=== PATIENT | male | born 1980 | race Caucasian/White ===

== ENCOUNTER → 2016-11-02 | Outpatient (CLI) | payer MEDICAID ==
[2016-11-02 09:00] LABS: HEMOGLOBIN 14.5 g/dL (14.1-18.0); LYMPH # 1.9 K/mm3 (0.7-4.5); LYMPH % 28.7 % (10-50)
[2016-11-02 09:54] LABS: BUN 10 mg/dL (7-18)
[2016-11-02 09:55] LABS: GFR (ESTIMATED) 94 ML/MIN (>60)
[2016-11-03 08:42] LABS: HIV Screen 4th Generation wRfx Non Reactive (Non Reactive); Hep B Surface Ab, Qual Non Reactive (.); Hep C Virus Ab <0.1 (0.0-0.9)
== END ==
LOC: LAB 08:38
PROVIDERS: Preventive Medicine Addiction Medicine
DX: Z87.898 Personal history of other specified conditions (principal)
CPT/HCPCS: G0432